=== PATIENT | male | born 1945 | race Two or more races ===

== ENCOUNTER → 2020-01-11 | Outpatient (CLI) | payer MEDICARE ==
--- NOTE | 2020-01-11 16:24 | Diagnostic Imaging Report ---
X-ray lumbar spine multiple views Comparison: None History: Back pain. Unable to stand up this morning. Findings: 5 lumbar type vertebrae. No fracture. No subluxation. No spondylolysis. No spondylolisthesis. Minimal degenerative disc disease changes. Facet joint disease most marked at L5-S1 levels. No lytic or blastic lesions. Impression: As above. Signed by: Tariq Mclain MD on 01/11/2020 4:21 PM
--- NOTE | 2020-01-11 16:27 | Diagnostic Imaging Report ---
X-ray sacrum 2 views History: Pain Comparison: None. 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 The tip of the coccyx is excluded but seems to be unremarkable to the extent seen. Impression: No acute abnormality. Signed by: Tariq Mclain MD on 01/11/2020 4:23 PM
== END ==
LOC: RAD 15:16
PROVIDERS: ATTEND Internal Medicine
DX: M47.816 Spondylosis without myelopathy or radiculopathy, lumbar region (principal)
CPT/HCPCS: 72110; 72220

== ENCOUNTER 2020-04-10 09:59 | Observation (INO) | payer MEDICARE, OTHER ==
[~2020-04-10] VITALS: Ht 175.3 cm; Wt 72.6 kg
[2020-04-10] MEDS ORDERED: FENTANYL CITRATE/PF 100MCG/2 ML INJ IV ONE (10:15)
[2020-04-10] MEDS ORDERED: ONDANSETRON HCL INJ 2MG/ML 2ML 2 MG/ML VIAL IV PRN ×2 (10:15→13:45)
--- NOTE | 2020-04-10 10:20 | Emergency Department Note ---
History of Present Illnes History of Present Illness Chief Complaint: Abdominal Complaints History of Present Illness This is a 74 year old Other male Chief Complaint Comment 6 WKS LEFT UPPER QUAD ABD PAIN. WAS SENT OUTPT, BUT INSURANCE WOULD NOT APPROVE. PT STATES NO N/V/D/F. Historian: Patient Arrival Mode: Car Video Recorder Mechanic Required: No Onset (how long ago): week(s) (6) Location: LUQ Quality: Dull Radiation: Reports back Severity: moderate Onset quality: gradual Duration (how long): week(s) (6) Timing of current episode: constant Progression: unchanged Chronicity: chronic Context: Denies recent illness, Denies recent surgery Relieving factors: none Exacerbating factors: none Associated symptoms: Reports denies other symptoms Treatments prior to arrival: none Past Medical/Family History Physician Review I have reviewed the patient's past medical and family history. Any updates have been documented here. Past Medical History Recent Fever: No Clinical Suspicion of Infectio: No New/Unexplained Change in Ment: No Past Medical History: Hypertension, CAD, Hyperlipedemia Social History Physically hurt or threatened: No Review of Systems Review of Systems Constitutional: Reports no symptoms EENTM: Reports no symptoms Cardiovascular: Reports no symptoms Respiratory: Reports no symptoms Gastrointestinal: Reports abdominal pain (LUQ) Genitourinary: Reports no symptoms Musculoskeletal: Reports no symptoms Integumentary: Reports no symptoms Neurological: Reports no symptoms Psychological: Reports no symptoms Endocrine: Reports no symptoms Hematological/Lymphatic: Reports no symptoms Physical Exam Related Data Allergies: Coded Allergies: No Known Allergies (Unverified , 04/10/20) Triage Vital Signs Vital Signs Date Time Temp Pulse Resp B/P (MAP) Pulse Ox O2 Delivery O2 Flow Rate FiO2 04/10/20 10:12 98.0 56 16 138/67 100 Room Air Vital signs reviewed: Yes Physical Exam CONSTITUTIONAL Constitutional: Present well-developed, Present well-nourished HENT HENT: Present normocephalic, Present atraumatic, Present oropharynx clear/moist, Present nose normal HENT L/R: Present left ext ear normal, Present right ext ear normal EYES Eyes: Reports PERRL, Reports conjunctivae normal NECK Neck: Present ROM normal PULMONARY Pulmonary: Present effort normal, Present breath sounds normal CARDIOVASCULAR Cardiovascular: Present regular rhythm, Present heart sounds normal, Present capillary refill normal, Present normal rate GASTROINTESTINAL Abdominal: Present soft, Present nontender, Present bowel sounds normal GENITOURINARY Genitourinary: Present exam deferred SKIN Skin: Present warm, Present dry MUSCULOSKELETAL Musculoskeletal: Present ROM normal NEUROLOGICAL Neurological: Present alert, Present oriented x 3, Present no gross motor or sensory deficits PSYCHOLOGICAL Psychological: Present mood/affect normal, Present judgement normal Procedures 12 Lead ECG Interpretation ECG Interpretation : ECG: ECG 1 Date: Apr 10, 2020 Rhythm: sinus rhythm Rate: normal (Low-normal) BPM: 56 QRS axis: normal Conduction: 1st degree ST segments normal: Yes T waves flattening: I, V1, V4, V5, V6 Clinical Impression: abnormal ECG Assessment & Plan Medical Decision Making MDM 74-year-old man presents for left upper quadrant pain present first 6 weeks. He is a patient of Dr. Barton's. Examination is largely unremarkable. CT abdomen and pelvis labs show pancreatic mass. Patient was discussed with Dr. Barton admits to Dr. Jimenez. I discussed patient with Dr. Palma agreed to accept for further workup if his pancreas mass. Patient is appropriate for transfer to the floor. Reassessment Reassessment time: 13:57 Reassessment Well appearing, NAD Assessment & Plan Final Impression: (1) Pancreatic mass Depart Disposition: ADMITTED Last Vital Signs Date Time Temp Pulse Resp B/P (MAP) Pulse Ox O2 Delivery O2 Flow Rate FiO2 04/10/20 10:12 98.0 56 16 138/67 100 Room Air Medications in the ED Ondansetron HCl 4 mg Q4H PRN IV NAUSEA AND VOMITING; Start 04/10/20 at 10:15; Stop 05/10/20 at 10:14; Status UNV Sodium Chloride 1,000 ml @ 100 mls/hr Q10H IV ; Start 04/10/20 at 10:15; Stop 05/10/20 at 10:14; Status UNV Fentanyl Citrate 50 mcg ONCE ONCE IV ; Start 04/10/20 at 10:15; Stop 04/10/20 at 10:16; Status UNV ANIL GALAVIZ MD Apr 10, 2020 10:20
[2020-04-10 10:42] LABS: BASOPHILS # (AUTO) 0.1 (0.0-0.1); BASOPHILS % 0.7 % (0.0-1.0); EOSINOPHILS # (AUTO) 1.4 (0.0-0.4); EOSINOPHILS % 15.4 % (0.0-6.0); HEMATOCRIT 38.9 % (38.2-49.6); HEMOGLOBIN 12.9 g/dL (14.0-18.0); LYMPHOCYTES # (AUTO) 1.4 (1.0-3.2); LYMPHOCYTES % 15.5 % (18.0-39.1); MEAN CORPUSCULAR HEMOGLOBIN 26.5 pg (28-32); MEAN CORPUSCULAR HGB CONC 33.2 g/dL (31-35); MEAN CORPUSCULAR VOLUME 79.9 fL (81-99); MONOCYTES # (AUTO) 0.7 (0.2-0.8); NEUTROPHILS # (AUTO) 5.5 (2.1-6.9); NEUTROPHILS % 60.2 % (38.7-80.0); PLATELET COUNT 195 x10e3/uL (140-360); RED BLOOD COUNT 4.87 x10e6/uL (4.3-5.7); RED CELL DISTRIBUTION WIDTH 15.7 % (11.7-14.4)
[2020-04-10 10:46] LABS: CLARITY,URINE CLEAR (CLEAR); COLOR,URINE YELLOW (YELLOW); KETONES,URINE NEGATIVE (NEGATIVE); LEUKOCYTE ESTERASE ,URINE NEGATIVE (NEGATIVE); NITRITE,URINE NEGATIVE (NEGATIVE); PROTEIN,URINE DIPSTICK NEGATIVE (NEGATIVE); URINE UROBILINOGEN 0.2 mg/dL (0.2 - 1)
[2020-04-10 10:47] LABS: BILIRUBIN,URINE NEGATIVE (NEGATIVE)
[2020-04-10 10:52] LABS: MUCUS,URINE MODERATE (RARE); RBC,URINE 0-5 /HPF (0-5); WBC,URINE (MAN) 0-5 /HPF (0-5)
[2020-04-10 11:32] LABS: ALANINE AMINOTRANSFERASE 11 IU/L (0-55); ALBUMIN 3.9 g/dL (3.5-5.0); ALKALINE PHOSPHATASE 89 IU/L (40-150); ANION GAP 15.8 mmol/L (8-16); BLOOD UREA NITROGEN 15 mg/dL (7-26); BUN/CREATININE RATIO 14 (6-25); CALCIUM 9.4 mg/dL (8.4-10.2); CARBON DIOXIDE 19 mmol/L (22-29); CHLORIDE 107 mmol/L (98-107); CREATININE, SERUM 1.09 mg/dL (0.72-1.25); EST GLOMERULAR FILTRATION RATE > 60 ML/MIN (60-); GLUCOSE 289 mg/dL (74-118); POTASSIUM 4.8 mmol/L (3.5-5.1); SODIUM 137 mmol/L (136-145)
[2020-04-10] MEDS: SODIUM CHLORIDE 0.9% 1000ML 1,000 ML IV SCH ×2 (11:45→20:15)
[2020-04-10] MEDS ORDERED: IOPAMIDOL 370 MG/ML 200 ML INFUS..BTL INJ ONE (11:51)
[2020-04-10] MEDS ORDERED: SODIUM CHLORIDE 0.9% 50ML 50 ML ONE (11:51)
--- OUTSIDE RECORDS SUMMARY | 2020-04-10 11:55 | XMS REPORT | Clinical Summary ---
Author Author [facility] Address Unknown Phone Unavailable Care Team Providers Care Paramedic Rn Name Role Phone Waldo Barton MD PCP Allergies No Known Allergies Medications End Date Status Medication Sig Dispensed Refills Start Date Active atorvastatin (LIPITOR) 20 Take 20 mg by 0 MG tablet mouth nightly. Default OP ins Active clopidogrel (PLAVIX) 75 Take 75 mg by 0 mg tablet mouth daily. Active glipiZIDE (GLUCOTROL) 5 Take 5 mg by 0 MG tablet mouth 2 (two) times a day before meals. Active metoprolol tartrate Take 25 mg by 0 (LOPRESSOR) 25 mg tablet mouth daily. Active losartan (COZAAR) 100 MG Take 100 mg 0 tablet by mouth daily. Active ranolazine (RANEXA) 500 Take 500 mg 0 MG 12 hr ER tablet by mouth 2 (two) times a day. Active sitaGLIPtin (JANUVIA) 100 Take 100 mg 0 MG tablet by mouth daily with dinner. Active metFORMIN (GLUCOPHAGE) Take 1,000 mg 0 1,000 mg tablet by mouth 2 (two) times a day with meals. Active Problems Problem Noted Date Chest pain in adult 03/16/2017 Social History Date Tobacco Use Types Packs/Day Years Used Never Assessed Sex Assigned at Date Recorded Not on file Industry Job Start Date Occupation Not on file Not on file Not on file Travel End Travel History Travel Start No recent travel history available. Last Filed Vital Signs Not on file Plan of Treatment Health Maintenance Due Date Last Done Comments COLONOSCOPY SCREENING 1993 SHINGLES VACCINES (#1) 1993 65+ PNEUMOCOCCAL VACCINE 2008 (1 of 2 - PCV13) INFLUENZA VACCINE 04/23/2020 Implants Device Identifier Shelf Expiration Date Model / Serial / L ot Implanted Type Area Manufactur er [id number] / / Stent Catheter Synergy (Otw) 4.00mm Coronary N/A: N/A BSC X 16mm - [id number] Stents INTERVENTI Implanted: Qty: 1 on 03/18/2017 by Elia Lilly MD at [facility] [id number] / / Stent Catheter Synergy (Otw) 4.00mm Coronary N/A: N/A BSC X 24mm - [id number] Stents INTERVENTI Implanted: Qty: 1 on 03/18/2017 by Elia Lilly MD at [facility] Results Not on fileafter 04/10/2019 Insurance Type Payer Benefit Subscriber ID Effective Phone Address Plan / Dates Group HMO AETNA MEDICARE AETNA xxxxxxxx 2016-P MEDICARE resent HMO/PPO [facility] Advance Directives For more information, please contact: [phone] Patient Stick Feeder Explanation Type Date Recorded Advance Directives, 03/16/2017 11:54 AM 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
--- OUTSIDE RECORDS SUMMARY | 2020-04-10 11:55 | XMS REPORT | Continuity of Care Document ---
Author Author [facility] t Organization [facility] Address [address] [place] [address] Phone Unavailable Care Team Providers Care Sheriffs Officer Name Role Phone Mick SIDHU, Todd Haas PCP Wade SALOMON Attphys Unavailable Problems Condition Name Condition Details Condition Category Status Onset Date Resolution Date Last Treatment Date Treating Clinician Comments Source Chest pain in adult Chest pain in adult Disease Active 2017-03-16 00:00 :00 Kody Briones Allergies, Adverse Reactions, Alerts This patient has no known allergies or adverse reactions. Social History Social Habit Start Date Stop Date Quantity Comments Source Sex Assigned At Sandra Briones Medications Ordered Medication Name Filled Medication Name Start Date Stop Da te Current Medication? Ordering Clinician Indication Dosage Frequency Signature (SIG) Comments Components Source atorvastatin (LIPITOR) 20 MG tablet 2017-03-19 12:15:17 Yes 20mg QD Take 20 mg by mouth nightly. Default OP ins Rickey Briones clopidogrel (PLAVIX) 75 mg tablet 2017-03-19 12:15:17 Yes 75mg QD Take 75 mg by mouth daily. Kody Briones glipiZIDE (GLUCOTROL) 5 MG tablet 2017-03-19 12:15:17 Yes 5mg Q.5D Take 5 mg by mouth 2 (two) times a day before meals. Kody Briones metoprolol tartrate (LOPRESSOR) 25 mg tablet 2017-03-19 12:15:17 Yes 25mg Take 25 mg by mouth daily. Rickey Briones losartan (COZAAR) 100 MG tablet 2017-03-19 12:15:17 Yes 100mg QD Take 100 mg by mouth daily. Kody Briones ranolazine (RANEXA) 500 MG 12 hr ER tablet 2017-03-19 12:15:17 Yes 500mg Q.5D Take 500 mg by mouth 2 (two) times a day. Kody Briones sitaGLIPtin (JANUVIA) 100 MG tablet 2017-03-19 12:15:17 Yes 100mg QD Take 100 mg by mouth daily with dinner. Kody Briones metFORMIN (GLUCOPHAGE) 1,000 mg tablet 2017-03-19 12:15:17 Yes 1000mg Q.5D Take 1,000 mg by mouth 2 (two) times a day with meals. Kody Briones Procedures This patient has no known procedures. Plan of Care Planned Activity Planned Date Details Comments Source Future Scheduled Test 2020-04-23 00:00:00 INFLUENZA VACCINE [code = INFLUENZA VACCINE] [facility] Future Scheduled Test 2008 00:00:00 65+ PNEUMOCOCCAL V ACCINE (1 of 2 - PCV13) [code = 65+ PNEUMOCOCCAL VACCINE (1 of 2 - PCV13)] [facility] Future Scheduled Test 1993 00:00:00 COLONOSCOPY SCREEN ING [code = COLONOSCOPY SCREENING] [facility] Future Scheduled Test 1993 00:00:00 SHINGLES VACCINES (#1) [code = SHINGLES VACCINES (#1)] [facility] Results Test Description Test Time Test Comments Results Result Comments Source SACRUM X-RAY 2020-01-11 16:22:00 [place] [address] Patient Name: MATTHEW BACA MR #: [id number] : 1945 Age/Sex: 74/M Req #: [id number] Adm Physician: Ordered by: JASPAL SALOMON MD Report #: [id number] Location: [facility] Room/Bed: Procedure: [id number] DX/SACRUM X-RAY Exam Date: 01/11/20 Exam Time: 153 REPORT STATUS: Signed X-ray sacrum 2 views History: Pain Comparison: None. 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 The tip of the coccyx is excluded but seems to be unremarkable to the extent seen. Impression: No acute abnormality. Signed by: Jcarlos Johnson MD on 01/11/2020 4:23 PM Dictated By: JCARLOS JOHNSON MD 22 Transcribed By: LUISA on 01/11/201622 COPY TO: JASPAL SALOMON MD SP LUMBAR, COMPLETE MIN 4VW 2020-01-11 16:20:00 [place] [address] Patient Name: MATTHEW BACA MR #: [id number] : 1945 Age/Sex: 74/M Req #: [id number] Adm Physician: Ordered by: JASPAL SALOMON MD Report #: [id number] Location: [facility] Room/Bed: Procedure: [id number] DX/SP LUMBAR, COMPLETE MIN 4VW Exam Date: 01/11/20 Exam Time: 153 REPORT STATUS: Signed X-ray lumbar spine multiple views Comparison: None History: Back pain. Unable to stand up this morning. Findings: 5 lumbar type vertebrae. No fracture. No subluxation. No spondylolysis. No spondylolisthesis. Minimal degenerative disc disease changes. Facet joint disease most marked at L5-S1 levels. No lytic or blastic lesions. Impression: As above. Signed by: Jcarlos Johnson MD on 01/11/2020 4:21 PM Dictated By: JCARLOS JOHNSON MD 20 Transcribed By: LUISA on 01/11/201620 COPY TO: JASPAL SALOMON MD
--- NOTE | 2020-04-10 12:38 | Diagnostic Imaging Report ---
TECHNIQUE: CT of the abdomen and pelvis WITH intravenous contrast and WITHOUT oral contrast. Dose modulation, iterative reconstruction, and/or weight-based adjustment of the mA/kV was utilized to reduce the radiation dose to as low as reasonably achievable. INDICATION: ^LUQ pain ^[id number] ^1140. COMPARISON: None. FINDINGS: LOWER THORAX: Unremarkable. HEPATOBILIARY: Hypodense left hepatic cyst is noted measuring up to 1.4 cm. No focal suspicious hepatic lesions. Multiple dependent gallstones are noted. No gallbladder distention or surrounding inflammatory changes. No biliary ductal dilatation. SPLEEN: No splenomegaly. PANCREAS: There is a heterogeneous ill-defined hypoattenuating lesion in the pancreatic tail measuring up to 6.2 cm in greatest diameter. There are a few focal calcifications within the pancreatic tail with mild surrounding inflammatory stranding. The uncinate process and head and proximal body of the pancreas are unremarkable. ADRENALS: No adrenal nodules. KIDNEYS/URETERS: No hydronephrosis, stones, or masses. PELVIC ORGANS/BLADDER: Urinary bladder and prostate are unremarkable. PERITONEUM/RETROPERITONEUM: No free air or fluid. LYMPH NODES: No lymphadenopathy. VESSELS: Unremarkable. GI TRACT: No surrounding inflammatory changes are noted. Normal appendix is noted. Negative for bowel obstruction. Moderate distal colonic retention is noted. BONES AND SOFT TISSUES: No acute osseous abnormality. Soft tissues are unremarkable. IMPRESSION: 1. Heterogeneous hypoattenuating lesion within the pancreatic tail with a few adjacent calcifications and surrounding inflammatory change. 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 Underlying neoplastic change is difficult to exclude given lack of comparison imaging. No adjacent drainable peripancreatic fluid collection is noted. Recommend obtaining any prior imaging for comparison versus follow-up pancreatic protocol MRI or CT after treatment of the acute process. 2. Cholelithiasis. No biliary dilatation is noted. 3. Moderate distal colonic and rectal stool burden. Signed by: Elliot Barton MD on 04/10/2020 12:35 PM
[2020-04-10] MEDS ORDERED: MORPHINE SULFATE 2 MG/ML SYR 1ML IV PRN (13:45)
[2020-04-10] MEDS ORDERED: MORPHINE SULFATE INJ 4 MG/ML INJ 1ML IV PRN (13:45)
--- OUTSIDE RECORDS SUMMARY | 2020-04-10 13:57 | XMS REPORT | Clinical Summary ---
Author Author [facility] Address Unknown Phone Unavailable Care Team Providers Care Cracking Still Operator Name Role Phone Waldo Barton MD PCP [...] L ot Implanted Type Area Manufactur er [id number] / / Stent Catheter Synergy (Otw) 4.00mm Coronary N/A: N/A BSC X 16mm - [id number] Stents INTERVENTI Implanted: Qty: 1 on 03/18/2017 by Elia Lilly MD at [facility] [id number] / / Stent Catheter Synergy (Otw) 4.00mm Coronary N/A: N/A BSC X 24mm - [id number] Stents INTERVENTI Implanted: Qty: 1 on 03/18/2017 by Elia Lilly MD at [facility] Results Not on fileafter 04/10/2019 Insurance Type Payer Benefit Subscriber ID Effective Phone Address Plan / Dates Group HMO AETNA MEDICARE AETNA xxxxxxxx 2016-P MEDICARE resent HMO/PPO [facility] Advance Directives For more information, please contact: [phone] Patient Manufacturing Advisor Explanation Type Date Recorded Advance Directives, 03/16/2017 11:54 AM Living Will and Medical Power of Cnp
--- OUTSIDE RECORDS SUMMARY | 2020-04-10 13:57 | XMS REPORT | Continuity of Care Document ---
Author Author [facility] t Organization [facility] Address [address] [place] [address] Phone Unavailable Care Team Providers Care Non Destructive Evaluation Specialist Name Role Phone Mick SIDHU, Todd Haas PCP Rhina Morris Attphys Unavailable Wade BARTON Attphys Unavailable Problems Condition Name Condition Details [...] Quantity Comments Source Sex Assigned At Sandra yungyola Briones Medications Ordered Medication Name Filled Medication [...] 00:00:00 INFLUENZA VACCINE [code = INFLUENZA VACCINE] [facility] Future Scheduled Test 2008 00:00:00 65+ PNEUMOCOCCAL V ACCINE (1 of 2 - PCV13) [code = 65+ PNEUMOCOCCAL VACCINE (1 of 2 - PCV13)] [facility] Future Scheduled Test 1993 00:00:00 COLONOSCOPY SCREEN ING [code = COLONOSCOPY SCREENING] [facility] Scheduled Test 1993 00:00:00 SHINGLES VACCINES (#1) [code = SHINGLES VACCINES (#1)] [facility] Results Test Description Test Time Test Comments Results Result Comments Source CT ABDOMEN/PELVIS W 2020-04-10 12:27:00 [facility] [address] [address] Patient Name: MATTHEW BACA MR #: [id number] : 1945 Age/Sex: 74/M Req #: [id number] [facility] Physician: Ordered by: Anil Morris MD Report #: [id number] Location: ER Room/Bed: Procedure: CT/CT ABDOMEN/PELVIS W Exam Date: 04/10/20 Exam Time: 1140 REPORT STATUS: Signed TECHNIQUE: CT of the abdomen and pelvis WITH intravenous contrast and WITHOUT oral contrast. Dose modulation, iterative reconstruction, and/or weight-based adjustment of the mA/kV was utilized to reduce the radiation dose to as low as reasonably achievable. INDICATION: LUQ pain 20200410 1140. COMPARISON: None. FINDINGS: LOWER THORAX: Unremarkable. HEPATOBILIARY: Hypodense left hepatic cyst is noted measuring up to 1.4 cm. No focal suspicious hepatic lesions. Multiple dependent gallstones are noted. No gallbladder distention or surrounding inflammatory changes. No biliary ductal dilatation. SPLEEN: No splenomegaly. PANCREAS: There is a heterogeneous ill-defined hypoattenuating lesion in the pancreatic tail measuring up to 6.2 cm in greatest diameter. There are a few focal calcifications within the pancreatic tail with mild surrounding inflammatory stranding. The uncinate process and head and proximal body of the pancreas are unremarkable. ADRENALS: No adrenal nodules. KIDNEYS/URETERS: No hydronephrosis, stones, or masses. PELVIC ORGANS/BLADDER: Urinary bladder and prostate are unremarkable. PERITONEUM/RETROPERITONEUM: No free air or fluid. LYMPH NODES: No lymphadenopathy. VESSELS: Unremarkable. GI TRACT: No surrounding inflammatory changes are noted. Normal appendix is noted. Negative for bowel obstruction. Moderate distal colonic retention is noted. BONES AND SOFT TISSUES: No acute osseous abnormality. Soft tissues are unremarkable. IMPRESSION: 1. Heterogeneous hypoattenuating lesion within the pancreatic tail with a few adjacent calcifications and surrounding inflammatory change. 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 Underlying neoplastic change is difficult to exclude given lack of comparison imaging. No adjacent drainable peripancreatic fluid collection is noted. Recommend obtaining any prior imaging for comparison versus follow-up pancreatic protocol MRI or CT after treatment of the acute process. 2. Cholelithiasis. No biliary dilatation is noted. 3. Moderate distal colonic and rectal stool burden. Signed by: Blanca Barton MD on 04/10/2020 12:35 PM Dictated By: BLANCA BARTON MD 1235 Transcribed By: LUISA on 04/10/20 1235 COPY TO: ANIL MORRIS MD SACRUM X-RAY 2020-01-11 16:22:00 [facility] [address] [place] [address] Patient Name: MATTHEW BACA MR #: [id number] : 1945 Age/Sex: 74/M Req #: [id number] Adm Physician: Ordered by: JASPAL BARTON MD Report #: [id number] Location: RAD Room/Bed: Procedure: [id number] DX/SACRUM X-RAY Exam Date: 01/11/20 Exam Time: 1530 REPORT STATUS: Signed X-ray sacrum 2 views History: Pain Comparison: None. 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 The tip of the coccyx is excluded but seems to be unremarkable to the extent seen. Impression: No acute abnormality. Signed by: Tariq Johnson MD on 01/11/2020 4:23 PM Dictated By: TARIQ JOHNSON MD 22 Transcribed By: LUISA on 01/11/201622 COPY TO: JASPAL BARTON MD SP LUMBAR, COMPLETE MIN 4VW 2020-01-11 16:20:00 [place] [id number] [place] [address] Patient Name: MATTHEW BACA MR #: [id number] : 1945 Age/Sex: 74/M Req #: [id number] Adm Physician: Ordered by: JASPAL BARTON MD Report #: [id number] Location: RAD Room/Bed: Procedure: [id number] DX/SP LUMBAR, COMPLETE MIN 4VW Exam Date: 01/11/20 Exam Time: 1530 REPORT STATUS: Signed X-ray lumbar spine multiple views Comparison: None History: Back pain. Unable to stand up this morning. Findings: 5 lumbar type vertebrae. No fracture. No subluxation. No spondylolysis. No spondylolisthesis. Minimal degenerative disc disease changes. Facet joint disease most marked at L5-S1 levels. No lytic or blastic lesions. Impression: As above. Signed by: Tariq Johnson MD on 01/11/2020 4:21 PM Dictated By: TARIQ JOHNSON MD 1621 Transcribed By: LUISA on 01/11/20 1621 COPY TO: JASPAL BARTON MD
[2020-04-10 15:22] VITALS: BP 137/72
[2020-04-10 16:00] VITALS: BP 137/72
[2020-04-10] MEDS ORDERED: ASPIRIN81 MG PO (16:19)
[2020-04-10] MEDS ORDERED: LOSARTAN POTAS100 MG PO (16:22)
[2020-04-10] MEDS ORDERED: GLIPIZIDE5 MG PO (16:22)
[2020-04-10] MEDS ORDERED: METFORMIN HCL500 M2 PO (16:22)
[2020-04-10] MEDS ORDERED: METOPROLOL TART25 MG PO (16:22)
[2020-04-10] MEDS ORDERED: ATORVASTATIN CA20 MG PO (16:22)
[2020-04-10] MEDS ORDERED: LINZESS72 MCG PEG (16:22)
[2020-04-10] MEDS ORDERED: FARXIGA10 MG PO (16:24)
[2020-04-10] MEDS ORDERED: MELOXICAM7.5 MG PO (16:29)
--- NOTE | 2020-04-10 16:31 | NUR ---
Patient arrived from ER at 1439. Patient was oriented to room, procedures and plan of care. Patient was assessed and had his NS IV started at 100 mL/hr. Patient did not have any questions at this time. There was a consult for Dr. Austin which was called and verified. Patient's home medications were also put in verified. Will alert Dr. Palma of arrival and home medications put in .
[2020-04-10 20:00] VITALS: BP 139/72
[2020-04-10] MEDS: INSULIN REGULAR, HUMAN 100 UNIT/1 ML 3ML VIAL SQ SCH (21:00)
[2020-04-10 21:18] VITALS: BP 139/72
[2020-04-10] MEDS ORDERED: ACETAMINOPHEN 325 MG TAB PO PRN (23:45)
[2020-04-11] VITALS (7 sets, daily range): BP systolic 122–145; BP diastolic 60–71
[2020-04-11] MEDS: HYDROCODONE/APAP 5MG-325MG TAB PO PRN ×2 (00:03→20:12)
--- NOTE | 2020-04-11 04:15 | History and Physical ---
CHIEF COMPLAINT: Abdominal pain x2 months. HISTORY OF PRESENT ILLNESS: This is a 74-year-old male, who has a history of type 2 diabetes, hypertension, who has been having 2 months history of abdominal pain, more described epigastrically and radiates to his back. The patient was evaluated by the PCP on several occasions. Of note, the patient was denied CT imaging of his abdomen by the insurance company. Due to the worsening pain, he was told to come to the ER for further evaluation and management. The patient denies any chest pain, palpitation, nausea, or vomiting. He reports eating very well with no complaints. He does describe having some epigastric abdominal pain that radiates to his back. The patient is stable during my evaluation. REVIEW OF SYSTEMS: Pertinent positives: Abdominal pain, decreased oral intake. The rest of 14-point review of systems are reviewed with the patient and are negative. ALLERGIES: NO KNOWN DRUG ALLERGIES. HOME MEDICATIONS: 1. Aspirin. 2. Glipizide. 3. Meloxicam. 4. Metformin. 5. Metoprolol. 6. Atorvastatin. 7. Farxiga. 8. Linzess. 9. Losartan. PAST MEDICAL HISTORY: Hypertension, type 2 diabetes, hyperlipidemia, chronic pain syndrome. PAST SURGICAL HISTORY: Reports none. FAMILY HISTORY: None. SOCIAL HISTORY: No drugs. No alcohol. Does not smoke. PHYSICAL EXAMINATION: VITAL SIGNS: Temperature is 97.8, pulse is 54, respiratory rate is 18, blood pressure is 139/72, pulse ox 100% on room air. GENERAL: Not in acute distress. Alert and oriented x3. Cooperative on examination. HEENT: Head; normocephalic, atraumatic. Eyes; pupils are equal, round, and reactive to light bilaterally. Extraocular movements intact bilaterally. Throat; no evidence of erythema or exudates in the posterior pharynx. Has poor dentition. NECK: Supple. Good range of motion. PULMONARY: Clear to auscultation bilaterally. No wheezing, no rales, no rhonchi, no crackles appreciated. CARDIOVASCULAR: Positive S1 and S2. No murmurs, rubs, or gallops appreciated. ABDOMEN: Soft, nondistended, and nontender to palpation. Bowel sounds present. MUSCULOSKELETAL: Strength is 5/5 throughout. No evidence of any muscle deficits on examination. No weakness appreciated. NEUROLOGIC: Cranial nerve II through XII grossly intact. No evidence of any neurological deficits on exam. SKIN: Intact. Warm to touch. Good cap refill. PSYCHIATRIC: Normal affect and mood. EXTREMITIES: No edema. Good range of motion throughout. LABORATORY DATA: Show white count 9, hemoglobin 12.8, hematocrit is 27.9, platelets of 195. Chemistry; sodium 137, potassium 4.8, chloride 107, bicarb 19, anion gap of 15, BUN is 1, glucose 289. LFTs within normal range. Albumin is 3.9, lipase 64. Urinalysis negative. Coronavirus is pending. IMAGING STUDIES: CT abdomen and pelvis with contrast shows halogenous hypoattenuating lesions in the pancreatic tail with a few adjacent calcifications surrounding inflammatory change. There is a concern for [id number] pancreatitis . IMPRESSION: 1. Abdominal pain, unknown etiology. 2. Hypertension. 3. Type 2 diabetes. PLAN: At this time, the patient reports that he is in very little pain. We are going to resume same home medications. Avoid morphine. If he did have a low heart rate, it is very concerning. If his heart rate is much improved, then back on the same plan of care. I put a consult for GI. Continue same plan of care. Monitor closely. MD KOSTAS Camp/MERRILL /[id number]
[2020-04-11 05:16] LABS: BASOPHILS # (AUTO) 0.1 (0.0-0.1); BASOPHILS % 0.7 % (0.0-1.0); EOSINOPHILS # (AUTO) 1.4 (0.0-0.4); EOSINOPHILS % 18.7 % (0.0-6.0); HEMATOCRIT 34.1 % (38.2-49.6); HEMOGLOBIN 11.4 g/dL (14.0-18.0); LYMPHOCYTES # (AUTO) 1.4 (1.0-3.2); LYMPHOCYTES % 18.7 % (18.0-39.1); MEAN CORPUSCULAR HEMOGLOBIN 27.3 pg (28-32); MEAN CORPUSCULAR HGB CONC 33.4 g/dL (31-35); MEAN CORPUSCULAR VOLUME 81.8 fL (81-99); MONOCYTES # (AUTO) 0.6 (0.2-0.8); MONOCYTES % 7.7 % (4.4-11.3); NEUTROPHILS % 53.9 % (38.7-80.0); PLATELET COUNT 149 x10e3/uL (140-360); RED BLOOD COUNT 4.17 x10e6/uL (4.3-5.7); RED CELL DISTRIBUTION WIDTH 15.8 % (11.7-14.4)
[2020-04-11 05:33] LABS: ANION GAP 12.3 mmol/L (8-16); BLOOD UREA NITROGEN 13 mg/dL (7-26); BUN/CREATININE RATIO 16 (6-25); CALCIUM 8.5 mg/dL (8.4-10.2); CARBON DIOXIDE 22 mmol/L (22-29); CHLORIDE 108 mmol/L (98-107); CREATININE, SERUM 0.81 mg/dL (0.72-1.25); EST GLOMERULAR FILTRATION RATE > 60 ML/MIN (60-); GLUCOSE 94 mg/dL (74-118); POTASSIUM 4.3 mmol/L (3.5-5.1); SODIUM 138 mmol/L (136-145)
[2020-04-11] MEDS: SODIUM CHLORIDE 0.9% 1000ML 1,000 ML IV SCH (06:36)
--- NOTE | 2020-04-11 06:37 | NUR ---
physician notified of routine consultation via telephone.
--- NOTE | 2020-04-11 06:58 | NUR ---
report given to day nurse.
[2020-04-11] MEDS: INSULIN REGULAR, HUMAN 100 UNIT/1 ML 3ML VIAL SQ SCH ×4 (07:30→20:14)
[2020-04-11] MEDS ORDERED: GADOBENATE DIMEGLUMINE 1 ML IV ONE (08:36)
[2020-04-11] MEDS ORDERED: SODIUM CHLORIDE 0.9% 50ML 50 ML ONE (08:36)
[2020-04-11] MEDS ORDERED: LINACLOTIDE 72 MCG PO SCH (09:00)
[2020-04-11] MEDS ORDERED: LOSARTAN POTASSIUM 100 MG TAB PO SCH (09:00)
[2020-04-11] MEDS ORDERED: NON-FORMULARY MEDICATION (Dapagliflozin Propanediol (Farxiga) 10 MG) PO SCH (09:00)
--- NOTE | 2020-04-11 11:31 | Diagnostic Imaging Report ---
EXAM: MRI of the abdomen with and without contrast with MRCP INDICATION: Abdominal pain, possible pancreatic mass. COMPARISON: CT 04/10/2020. TECHNIQUE: Multiplanar and multisequence imaging was performed of the abdomen. T1 and T2-weighted images were obtained with and without contrast. T1-weighted in and [id number] , Dynamic, post gadolinium T1-weighted spoiled gradient echo scans. 15 cc of gadolinium were administered intravenously. M.R.C.P. technique: Multiplanar, multisequence MRCP was performed, with sequences including coronal turbo spin-echo T1-weighted scans, [facility] MRCP scans, coronal spin, coronal MPR 2, SMRCP 3D HR, [facility] MRCP CUETO. Discussion: Exam is limited due to motion artifact. LOWER THORAX: The heart is enlarged. There is mild bibasilar atelectasis. HEPATOBILIARY: There is diffuse loss of signal on out of phase images, consistent with diffuse hepatic steatosis. 1.6 cm cyst in segment 3 of the liver. No biliary ductal dilation. GALLBLADDER: There are stones in the gallbladder. No wall thickening. SPLEEN: No splenomegaly. PANCREAS: There is a large mildly T2 hyperintense mass involving the body and tail of the pancreas measuring approximately 8.2 x 3.5 x 3.8 cm. The distal tail of the pancreas is atrophic with mild ductal dilation. There is suggestive circumferential encasement of the splenic artery. There is also partial encasement and narrowing of the superior mesenteric vein. ADRENALS: No adrenal nodules KIDNEYS/URETERS: Kidneys enhance symmetrically. No hydronephrosis. Multiple bilateral renal cysts. The largest measures 1.9 cm in the upper pole of the right kidney. No stones. GI TRACT: No abnormal distention, wall thickening, or evidence of bowel obstruction. Appendix is normal. LYMPH NODES: No lymphadenopathy. VESSELS: Unremarkable. PERITONEUM / RETROPERITONEUM: Mild left-sided retroperitoneal edema and fluid along the anterior para renal fascia. No significant ascites. No focal collection. BONES: Degenerative changes in the spine. SOFT TISSUES: Unremarkable. IMPRESSION: Limited exam secondary to motion artifact. Large hypoenhancing focus in the pancreatic body and tail is concerning for pancreatic adenocarcinoma. Further evaluation with endoscopic ultrasound and FNA is suggested. Left hepatic lobe cyst. Bilateral renal cysts. Cholelithiasis. Signed by: Nabil Slater MD on 04/11/2020 11:28 AM
--- NOTE | 2020-04-11 12:07 | Consultation ---
DATE OF CONSULTATION: Cardiac Consultation REASON FOR CONSULTATION: Coronary artery disease, bradycardia, abdominal pain. HISTORY OF PRESENT ILLNESS: This is a 74-year-old gentleman, who is known with coronary artery disease. The patient underwent coronary artery bypass surgery in 1998. Most recent cardiac catheterization showed severely diseased venous graft to the right coronary artery and obtuse marginal. The patient underwent successful PCI and procedures and stenting. He is diabetic, hypercholesterolemic. 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 The patient is seen in my office on March 25 because he was having abdominal pain and going on for 2 months, progressively worse in the right upper quadrant and above the left upper quadrant. He lost weight. He is gargling and his symptoms are worsened by meal. It is worsened also by certain position. He is followed by Dr. Allison Barton. He was seen by Dr. Escobar and he had colonoscopy, which revealed anything. Dr. Barton tried his best to get CT scan and to work him up and refused by insurance. The patient needed to come to the emergency room yesterday complaining of this abdominal pain, which is worsening. Initial workup showed the presence of pancreatic mass 6.2 cm in the tail of the pancreas as well as the presence of gallstone. He had also left hepatic cyst, which seems to be benign. The patient is supposed to have now an MRI for further evaluation of this pancreatic mass. Cardiac-he, the patient denied having angina. His symptoms are with heavy exertion, he will get some shortness of breath. There is no chest pain. There is no orthopnea, no paroxysmal nocturnal dyspnea. There are no heart failure symptoms. Although, his heart rate on lower side, but he denied having any syncope or presyncope. Diabetes mellitus, nicely controlled on medication. Hypercholesteremia, on statin. Hypertension, taking above medication. Regarding his GI symptoms were progressively worse as described above. REVIEW OF SYSTEMS: Extensive to all systems, will be summarized for clarity. GENERAL: Weight loss, poor appetite. SKIN: No rashes. HEENT: Occasional headaches. PULMONARY AND CARDIAC: As per above. GI: Abdominal pain, discomfort, bloating, and weight loss. HEMATOLOGY: Easy bruising, but no bleeding. : No hematuria. No dysuria. MUSCULOSKELETAL: Occasional right knee pain. PERIPHERAL VASCULAR: No claudication. SKIN: No rashes. NEUROLOGICAL: No seizure activity. No headaches. PSYCHIATRY: Excellent support with no symptoms. SOCIAL HISTORY: He is . He stopped smoking in 1985. He does not drink alcohol. 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 HOME MEDICATIONS: 1. Aspirin 81 mg a day. 2. Plavix 75 mg a day. 3. Forxiga 10 mg a day. 4. Metformin 1000 mg twice a day. 5. Januvia 100 mg per day. 6. Fish oil one capsule twice a day. 7. Metoprolol succinate 25 mg a day. 8. Atorvastatin 40 mg a day. 9. Losartan 100 mg a day. 10. Hydralazine 50 mg twice a day. 11. Glipizide 1 tablet twice a day. ALLERGIES: NONE. PAST MEDICAL HISTORY: 1. Coronary artery disease, status post bypass in January 2000 with ABREU to LAD, radial to first obtuse marginal, saphenous vein graft to second obtuse marginal, saphenous vein graft to the right coronary artery. 2. Latest cath showed disease in both saphenous vein graft, treated successfully with PCI of both the graft in November 2017, using 4 x 38 Delvis stent and 4 x 15 Baxter stent to the SVG to the OM2 and to the right coronary artery 4 x 18 Baxter stent. 3. Diabetes mellitus. 4. Hypercholesterolemia. 5. 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 6. Degenerative joint disease in few joints. 7. Mild peripheral neuropathy. 8. The above-mentioned illness of abdominal pain and weight loss. FAMILY HISTORY: Mother at age 67, complication of diabetes mellitus and heart disease. Father with diabetes mellitus and myocardial infarction at young age. Nine siblings, several with diabetes and coronary artery disease. PHYSICAL EXAMINATION: VITAL: Height of 5 feet 9 inches, weight of 160 pounds, blood pressure 130/70, heart rate of 50, respiratory rate of 18, afebrile. HEENT: Pupils are reactive. NECK: No elevation of jugular venous pulsation. No bruit. CHEST: Sternotomy scar is noted. Clear to auscultation and percussion. HEART: PMI 5th left intercostal space. Normal first and second heart sounds. ABDOMEN: Soft. Minimal tenderness in the left upper quadrant, but no rebound. Bowel sounds are present. EXTREMITIES: No cyanosis, no clubbing, no edema. LABORATORY DATA: Total bilirubin of 1, sodium of 138, potassium of 4.3, BUN of 13, creatinine 0.81, glucose of 94. White blood cell count of 7.4, hemoglobin of 11.4, hematocrit 34%, platelet count of 249,000. CT abdomen showed pancreatic mass as well as gallstones. IMPRESSION AND PLAN: 1. Abdominal pain. Workup in progress. Pancreatic mass is noted. Gallstones are noted. 2. Coronary artery disease, status post bypass and PCIs. 3. Hypertension. 4. Diabetes mellitus. 5. Hypercholesteremia. 6. Diabetes mellitus, end-organ damage. 7. Chronic elevation of bilirubin at 1. From a cardiac point of view, the patient is cleared for whatever procedure he need. It is okay to stop his beta-chary currently for the bradycardia. Definitely aspirin and Plavix should be off for the need of possible biopsy. We will follow the patient's progression with you and we would like to thank you for your kind referral. MD BRENDA Varela/JOSEYL /[id number]
--- NOTE | 2020-04-11 15:11 | NUR ---
ORDERS TO TRANSFER PT TO [facility] FOR DR VALVERDE TO PERFORM A EUSFNA PROCEEDURE WE DO NOT HAVE THE EQUIPMENT NEEDED AT OUR HOSPITAL FOR THE PROCEEDURE CHOICE LETTER SIGNED BY PT, COPY ON CHART CM INITIATED TRANSFER TO [facility] CONTACTED TRANSFER CENTER AT [phone] SPOKE WITH LUIS TO INITIATE TRANSFER FAXED FACE SHEET TO [phone]; CONFIRMATION REC'D DR BALTAZAR TRANSFERING AND ACCEPTING PHYSICIAN MOT INITIATED AND PLACED IN PACKET AT DESK COVID FORM COMPLETED AND PLACED IN PACKET AND COPY IN CHART [employer]ODUCTION [employer] CALLING IR TO GET COPY OF IMAGING ON CD ACCESS SERVICES REPRESENTATIVE NOTIFIED OF PENDING TRANSFER
--- NOTE | 2020-04-11 19:57 | NUR ---
Received call that bed is available for patient tonight. Per Dr. Palma, ok to transfer tonight. Called [facility] and spoke to Racquel Charge Nurse to give report. Pt will be going into room 5004. Pt informed he would be going tonight. Pt c/o pain to Abdomen. rates a 7/10 on pain scale. [place] 5/325mg given PO. Scheduled lipitor given. Blood sugar 240 8units of Humulin R given to lt arm. No further complaints at this time.
[2020-04-11] MEDS ORDERED: ATORVASTATIN 20 MG TAB PO SCH (21:00)
--- NOTE | 2020-04-11 21:45 | Consultation ---
DATE OF CONSULTATION: 04/11/2020 HISTORY OF PRESENT ILLNESS: This 74-year-old my office patient, who presented to the hospital because of abdominal pain, which had been going on for couple of months and his pain is mostly in the epigastric area, heading towards the back. His workup revealed that he had a CT scan of abdomen and pelvis, which shows pancreatic mass in the tail of the pancreas with gallstones. He did get an MRCP and this shows body or tail concerning of cancer, also left hepatic cyst and gallstones. He is anemic. Hemoglobin is around with low iron. PAST MEDICAL PROBLEM: Significant for history of diabetes, hypertension, history of hyperlipidemia. MEDICATIONS: On admission including aspirin, glipizide, meloxicam, metformin, metoprolol, atorvastatin, Farxiga, Linzess, and losartan. ALLERGIES: NONE. SOCIAL HISTORY: Denies alcohol use. FAMILY HISTORY: Noncontributory. REVIEW OF SYSTEMS: Denies any chest pain or shortness of breath. Denies any dysphagia or odynophagia. Denies any dysuria, hematuria, or any kind of syncopal episode. PHYSICAL EXAMINATION: GENERAL: Lying in bed, appears to be stable, not in acute distress at this point. VITAL SIGNS: Afebrile currently with stable vital signs. HEAD, EYES, EARS, NOSE, AND THROAT: Normocephalic, atraumatic. Sclerae are anicteric. NECK: Supple. HEART: Regular. ABDOMEN: Soft. There is no distention at this point and is nontender. EXTREMITIES: . LAB VALUES: His CMP was okay, and WBC of 7.38, hemoglobin of 11.4, hematocrit of 34.1. CAT scan and MRI as mentioned before. IMPRESSION: 1. Abdominal pain with pancreatic mass. 2. Anemia. 3. History of diabetes. RECOMMENDATION: Continue current care. We will proceed with EGD and EUS with FNA. The patient had to be transfer to another facility because of that and follow clinically. MD ZULY Araujo/MODJayson /[id number] cc: MD Rehan Bertrand MD
--- NOTE | 2020-04-12 01:05 | Discharge Summary ---
FINAL DISCHARGE DIAGNOSES: 1. Pancreatic mass. 2. Abdominal pain secondary to pancreatic mass. 3. Hypertension. 4. Type 2 diabetes. CONSULTANTS: GI, Cardiology. VITAL SIGNS: Temperature is 98.5, pulse 60, respiratory rate is 18, blood pressure 145/69, pulse ox 100% on room air. LABORATORY FINDINGS: Show white count 7.3, hemoglobin 11.4, hematocrit is 34, and platelets of 149. Chemistry; sodium 138, potassium 4.3, chloride 108, bicarb 23, anion gap of 12, BUN is 13, creatinine is 0.81, glucose 94, calcium 8.5, CA 19-9 pending. Lipase level was 64. Albumin was 3.9. Troponins were negative. Urinalysis negative. Serology not detected for coronavirus. IMAGING STUDIES: CT abdomen and pelvis showed heterogeneous hypoattenuating lesion within the pancreatic tail with a few adjacent calcified surrounding inflammatory changes. Findings are concerning for vyasd-[id number] pancreatitis with necrosis. Underlying neoplastic changes, this is difficult to exclude. No cholelithiasis. No biliary dilatation. Moderate distal colonic and rectal stool burden. MRCP ordered, shows a large hypoenhancing focus in the pancreatic body and tail is concerning for pancreatic adenocarcinoma. Left hepatic lobe cyst. Bilateral renal cyst. Cholelithiasis. HOSPITAL COURSE: A 74-year-old male, was sent in by his PCP due to chronic abdominal pain, ongoing for the last 2 months. The patient has been trying to get a CT as an outpatient, but was denied by the insurance company, comes to [facility] and had a CT abdomen and pelvis concerning for pancreatic mass. GI was consulted. MRCP consistent with a pancreatic mass. After discussing this case with GI, they recommend transferring the patient to [facility] for an endoscopic ultrasound test to be performed tomorrow on 04/12/2020. The patient agreed with plan of care. The patient was stable prior to being transferred. The patient was transferred to [facility]. On the day of discharge, vital signs were stable, labs reviewed and stable. The patient is seen and evaluated and examined thoroughly on the day of discharge with no other complaints. The patient verbalized understanding and agrees to plan of care to follow up accordingly as an outpatient with the primary care physician in 1 week. MEDICATIONS: See med reconciliation form. DISPOSITION: Transferred to [facility]. CONDITION: Stable. In the event of any worsening symptoms, the patient was advised to come back to the ED for further evaluation. Discharge summary took greater than 35 minutes. MD KOSTAS Camp/MERRILL /[id number]
[2020-05-24] MEDS ORDERED: NORCO 10-325 T1 EACH PO (10:12)
[2020-05-24] MEDS ORDERED: LEVOFLOXACIN250 MG PO (10:13)
[2020-05-28] MEDS ORDERED: CLOPIDROGEL PO (07:40)
== END 2020-04-11 23:45 | disposition short-term general hospital (02) ==
LOC: ER 10:13 → INTOOBSV 13:54 → ERHOLD 13:54 → MED/SURG 14:39
PROVIDERS: ADMIT Internal Medicine; ATTEND Internal Medicine
DX: K86.89 Other specified diseases of pancreas (principal); I10 Essential (primary) hypertension; E78.5 Hyperlipidemia, unspecified; K86.3 Pseudocyst of pancreas; Z79.82 Long term (current) use of aspirin; Z79.84 Long term (current) use of oral hypoglycemic drugs; G89.4 Chronic pain syndrome; I25.10 Atherosclerotic heart disease of native coronary artery without angina pectoris; Z95.1 Presence of aortocoronary bypass graft; Z95.5 Presence of coronary angioplasty implant and graft; E11.42 Type 2 diabetes mellitus with diabetic polyneuropathy; D72.1 Eosinophilia; K80.80 Other cholelithiasis without obstruction; K76.89 Other specified diseases of liver
CPT/HCPCS: 36415 ×2; 74177; 74183; 80048; 80053; 81001; 82948 ×2; 83690; 84484; 85025 ×2; 86301; 93005; 96360; 96361; 99284; G0378 ×2; J2405; J3010; J7030 ×2; Q9967; U0002; J2270

== ENCOUNTER → 2020-05-28 | Day surgery (SDC) | payer MEDICARE, OTHER ==
[2020-05-24 15:16] LABS: BASOPHILS # (AUTO) 0.1 (0.0-0.1); BASOPHILS % 0.6 % (0.0-1.0); EOSINOPHILS # (AUTO) 2.2 (0.0-0.4); EOSINOPHILS % 16.8 % (0.0-6.0); HEMATOCRIT 32.4 % (38.2-49.6); HEMOGLOBIN 10.7 g/dL (14.0-18.0); LYMPHOCYTES # (AUTO) 1.3 (1.0-3.2); MEAN CORPUSCULAR HEMOGLOBIN 26.1 pg (28-32); MONOCYTES # (AUTO) 1.1 (0.2-0.8); MONOCYTES % 8.2 % (4.4-11.3); NEUTROPHILS # (AUTO) 8.1 (2.1-6.9); NEUTROPHILS % 62.6 % (38.7-80.0); PLATELET COUNT 326 x10e3/uL (140-360)
[2020-05-24 15:33] LABS: ANION GAP 15.4 mmol/L (8-16); BLOOD UREA NITROGEN 18 mg/dL (7-26); BUN/CREATININE RATIO 17 (6-25); CARBON DIOXIDE 23 mmol/L (22-29); CHLORIDE 102 mmol/L (98-107); CREATININE, SERUM 1.06 mg/dL (0.72-1.25); EST GLOMERULAR FILTRATION RATE > 60 ML/MIN (60-); GLUCOSE 253 mg/dL (74-118); POTASSIUM 4.4 mmol/L (3.5-5.1); SODIUM 136 mmol/L (136-145)
[2020-05-24 16:53] LABS: EOSINOPHILS % (MANUAL) 12 % (0-7); LYMPHOCYTES % (MANUAL) 12 % (19-48); MONOCYTES % (MANUAL) 6 % (3.4-9.0); NEUTROPHILS % (MANUAL) 69 % (40-74); PLATELET ESTIMATE ADEQUATE; PLATELET MORPHOLOGY COMMENT NORMAL; RBC MORPHOLOGY COMMENT NORMAL
[~2020-05-28] MED LIST: ASPIRIN81 MG PO; ATORVASTATIN CA20 MG PO; CEFAZOLIN SOD 1 GM/NS 50ML 50 ML IV ONE; CLOPIDROGEL PO; DEXAMETHASONE SOD PHOS INJ 4 MG/ML VIAL ONE; EPHEDRINE SULFATE INJ 50 MG/ML VIAL ONE; FARXIGA10 MG PO; FENTANYL CITRATE/PF 100MCG/2 ML INJ ONE; GLIPIZIDE5 MG PO; HEPARIN SOD (PORCINE) 5,000 UNIT/ML VIAL ONE; HYDROCODONE/APAP 7.5MG-325MG 1 EA TAB ONE; LEVOFLOXACIN250 MG PO; LIDOCAINE HCL 2% LOCAL INJ 5 ML SDV VIAL INJ ONE; LINZESS72 MCG PEG; LOSARTAN POTAS100 MG PO; MELOXICAM7.5 MG PO; METFORMIN HCL500 M2 PO; METOPROLOL TART25 MG PO; MIDAZOLAM HCL 2 MG/2 ML VIAL ONE; NORCO 10-325 T1 EACH PO; ONDANSETRON HCL INJ 2MG/ML 2ML 2 MG/ML VIAL ONE; PROPOFOL IV EMULSION 10 MG/ML 20 ML VIAL ONE; SEVOFLURANE INHAL SOLN 250 ML PEN BTL ONE; SODIUM CHLORIDE 0.9% 250ML 250 ML ONE
[2020-05-28 12:12] VITALS: BP 100/59
== END | disposition home or self-care (01) ==
LOC: OR 06:55
PROVIDERS: ATTEND Surgery
DX: C25.9 Malignant neoplasm of pancreas, unspecified (principal); I44.0 Atrioventricular block, first degree; I45.10 Unspecified right bundle-branch block; I10 Essential (primary) hypertension; I25.810 Atherosclerosis of coronary artery bypass graft(s) without angina pectoris; E11.9 Type 2 diabetes mellitus without complications; K28.9 Gastrojejunal ulcer, unspecified as acute or chronic, without hemorrhage or perforation; F41.9 Anxiety disorder, unspecified; Z01.812 Encounter for preprocedural laboratory examination; Z01.818 Encounter for other preprocedural examination; Z11.59 Encounter for screening for other viral diseases; Z79.02 Long term (current) use of antithrombotics/antiplatelets; Z79.82 Long term (current) use of aspirin; Z79.84 Long term (current) use of oral hypoglycemic drugs; Z95.1 Presence of aortocoronary bypass graft; Z87.891 Personal history of nicotine dependence
CPT/HCPCS: 36415 ×2; 36561; 71045; 71046; 77001; 80048; 82948; 85025; C1751; J0690; J1100; J1644; J2001; J2250; J2405; J2704; J3010; J7050; U0002

== ENCOUNTER → 2020-07-26 | Outpatient (CLI) | payer MEDICARE ==
[~2020-07-26] MED LIST changes: -CEFAZOLIN SOD 1 GM/NS 50ML 50 ML IV ONE; -DEXAMETHASONE SOD PHOS INJ 4 MG/ML VIAL ONE; -EPHEDRINE SULFATE INJ 50 MG/ML VIAL ONE; -FENTANYL CITRATE/PF 100MCG/2 ML INJ ONE; -HEPARIN SOD (PORCINE) 5,000 UNIT/ML VIAL ONE; -HYDROCODONE/APAP 7.5MG-325MG 1 EA TAB ONE; +IOPAMIDOL 370 MG/ML 200 ML INFUS..BTL INJ ONE; -LIDOCAINE HCL 2% LOCAL INJ 5 ML SDV VIAL INJ ONE; -MIDAZOLAM HCL 2 MG/2 ML VIAL ONE; -ONDANSETRON HCL INJ 2MG/ML 2ML 2 MG/ML VIAL ONE; -PROPOFOL IV EMULSION 10 MG/ML 20 ML VIAL ONE; -SEVOFLURANE INHAL SOLN 250 ML PEN BTL ONE; -SODIUM CHLORIDE 0.9% 250ML 250 ML ONE; +SODIUM CHLORIDE 0.9% 50ML 50 ML ONE
--- NOTE | 2020-07-26 17:14 | Diagnostic Imaging Report ---
EXAM: CT ABDOMEN WITH CONTRAST CLINICAL INDICATION: Pancreatic cancer TECHNIQUE: CT abdomen was performed to the iliac crests, following the administration of contrast, as per department protocol. Axial, sagittal, and coronal reconstructions were obtained. IV CONTRAST: 100 cc of [id number] ORAL CONTRAST: Not administered, limiting sensitivity of this exam for evaluation of bowel, retroperitoneum, and intraabdominal fluid collections. RADIATION DOSE REDUCTION: This exam was performed according to the departmental dose-optimization program which includes automated exposure control, adjustment of the mA and/or kV according to patient size and/or use of iterative reconstruction technique. COMPARISON: None FINDINGS: LOWER CHEST: Lung bases unremarkable. No pleural effusion or pneumothorax. Coronary artery calcification. Borderline cardiomegaly. Lower end of a central venous catheter seen in the SVC/right atrium. LIVER: A 1.6 mm hypodense area in segment 3 of the liver likely representing a liver cyst. Otherwise unremarkable. No biliary dilatation. Portal vein and its branches and the superior mesenteric vein are patent. GALLBLADDER: Multiple radiopaque gallstones in the dependent part of the gallbladder. BILE DUCTS: No pathologic process. PANCREAS: There is a 5.2 x 2.7 cm cystic lesion in the pancreas with a few septations. This is consistent with a cystic neoplasm of the pancreas. It abuts the inferior surface of the gastric fundus and body. There is no intervening fat plane between the lesion and the stomach in this location. There is adjacent gastric wall thickening. The proximal jejunum is situated in the immediate facility of the inferior aspect of the cystic structure. There might be obliteration of the fat plane at some foci. The arteries including the celiac and superior mesenteric arteries are patent and uninvolved. The splenic artery courses in close proximity to the cystic lesion. The splenic vein is not identified and is probably thrombosed. This explains the gastric wall thickening. SPLEEN: No major pathologic process. A small calcified splenic granuloma. ADRENALS: No pathologic process. KIDNEYS: A 2 cm upper medial simple cortical cyst in the right kidney. Another mid pole 1 cm simple cortical cyst in the right kidney adjacent to the central sinus complex. A 11 mm cyst in the lower pole of the left kidney, apparently a simple cyst. GASTROINTESTINAL TRACT: As above LYMPH NODES: No obvious lymphadenopathy PERITONEUM/MESENTERY: No free air, significant free fluid, mass or fluid collection. VESSELS: As described above. The aorta is nonaneurysmal. ADDITIONAL RETROPERITONEAL FINDINGS: None. ABDOMINAL WALL: A midline abdominal scar, healed is visualized. MUSCULOSKELETAL: No aggressive bony lesions. ADDITIONAL FINDINGS: None. IMPRESSION: Cystic lesion in the region of the tail of the pancreas with in detail findings as described above. Further evaluation, if needed can be obtained with pancreatic protocol CT or MRI. Standardized Report: [id number]. Signed by: Tariq Mclain MD on 07/26/2020 5:10 PM
== END ==
LOC: CT 10:27
PROVIDERS: ATTEND Internal Medicine Hematology & Oncology
DX: C25.9 Malignant neoplasm of pancreas, unspecified (principal)
CPT/HCPCS: 74160; Q9967